=== PATIENT | male | born 1995 | race Caucasian/White ===

== ENCOUNTER 2019-03-10 18:21 | Emergency (ER) | payer OTHER ==
[~2019-03-10] VITALS: Ht 185.4 cm; Wt 82.6 kg
--- NOTE | 2019-03-10 20:02 | REP ---
Right knee five views: There are no comparisons. There is no fracture or dislocation. Mineralization and joint spaces are normal. I suspect there is a small joint effusion. Impression: Small joint effusion. No fracture. Electronically Signed by Young Avalos MD 03/10/2019 07:53 P
[2019-03-10] MEDS ORDERED: KETOROLAC 60 MG/2 ML VIAL (J1885) IM ONE (21:00)
[2019-03-10] MEDS ORDERED: ACETAMINOPHEN 325 MG TAB PO ONE (21:00)
[2019-03-10 21:09] VITALS: BP 118/59
[2019-03-10] MEDS ORDERED: KETO10TAB PO (21:27)
== END 2019-03-10 21:37 | disposition home or self-care (01) ==
LOC: M ED 18:21
DX: S70.11XA Contusion of right thigh, initial encounter (principal); S80.01XA Contusion of right knee, initial encounter; M25.461 Effusion, right knee; W22.09XA Striking against other stationary object, initial encounter; Y92.89 Other specified places as the place of occurrence of the external cause; Y99.1 Military activity; F17.200 Nicotine dependence, unspecified, uncomplicated; Z88.2 Allergy status to sulfonamides
CPT/HCPCS: 73564; 96372; 99283; J1885